=== PATIENT | male | born 1980 | race Caucasian/White ===

== ENCOUNTER 2016-10-18 22:02 | Emergency (ER) | payer MEDICARE, OTHER | END 2016-10-18 23:57 | disposition home or self-care (01) | LOC: ER 22:02 | DX: R00.2 Palpitations (principal); F31.9 Bipolar disorder, unspecified; F17.210 Nicotine dependence, cigarettes, uncomplicated; Z79.899 Other long term (current) drug therapy; Z88.8 Allergy status to other drugs, medicaments and biological substances | CPT/HCPCS: 36415 ==